=== PATIENT | male | born 1940 | race Hispanic/Latino ===

== ENCOUNTER 2018-10-31 19:30 | Outpatient (CLI) | payer OTHER | END 2018-10-31 19:31 | disposition home or self-care (01) | LOC: SLEEPLAB 19:30 | PROVIDERS: ATTEND Internal Medicine Critical Care Medicine | DX: G47.33 Obstructive sleep apnea (adult) (pediatric) (principal); R53.83 Other fatigue; E66.9 Obesity, unspecified; R09.02 Hypoxemia; Z68.29 Body mass index [BMI] 29.0-29.9, adult | CPT/HCPCS: 95811 ==

== ENCOUNTER 2018-11-06 12:52 | Outpatient (CLI) | payer OTHER ==
--- NOTE | 2018-11-06 14:51 | RAD ---
CHEST 2 VIEWS: HISTORY: Dyspnea. COMPARISON: 05/07/2018. FINDINGS: Cardiac silhouette and pulmonary vasculature are unremarkable. Mediastinum is midline with aortic ca lcification. Lungs are hyperinflated with linear scarring at each lung base. No lobar consolidation , pneumothorax, or pleural fluid. Old left lateral rib fractures. IMPRESSION: 1. Chronic obstructive pulmonary disease. Chronic-type findings appear stable. 2. Atherosclerosis. POS: [facility]
== END 2018-11-06 12:53 | disposition home or self-care (01) ==
LOC: RAD 12:52
PROVIDERS: ATTEND Internal Medicine Critical Care Medicine
DX: R06.00 Dyspnea, unspecified (principal); J44.9 Chronic obstructive pulmonary disease, unspecified; I70.0 Atherosclerosis of aorta; J98.4 Other disorders of lung; Z87.81 Personal history of (healed) traumatic fracture
CPT/HCPCS: 71046

== ENCOUNTER 2021-07-03 15:02 | Observation (INO) | payer OTHER ==
[~2021-07-03 15:02] MED LIST: Iopamidol-370 76% 500 ML 1 ML ONE
[2021-07-03 15:35] LABS: #Basophils 0.1 thou/uL (0.0-0.2); #Lymphocytes 0.7 thou/uL (1.20-3.40); #Monocytes 0.4 thou/uL (0.11-0.59); #Neutrophils 4.6 thou/uL (1.40-6.50); %Basophils 1.3 % (0.0-1.0); %Eosinophils 0.8 % (0.0-10.0); %Lymphocytes 12.1 % (21.0-51.0); %Monocytes 6.1 % (0.0-10.0); %Neutrophils 79.8 % (42.0-75.0); Hemoglobin 10.9 g/dL (14.0-18.0); Mean Corpuscular HGB CONC 32.3 g/dL (32.0-36.0); Mean Corpuscular Hemoglobin 28.6 pg (27.0-31.0); Mean Corpuscular Volume 88.7 fL (78.0-98.0); Mean Platelet Volume 6.9 fL (7.4-10.4); Platelet Count 280 thou/uL (130-400); RBC Distribution Width 14.4 % (11.5-14.5); Red Blood Cell (RBC) Count 3.82 mill/uL (4.70-6.10); White Blood Cell (WBC) Count 5.7 thou/uL (4.8-10.8)
[2021-07-03 15:56] LABS: ALT (SGPT) 19 U/L (8-55); AST (SGOT) 29 U/L (5-34); Albumin 3.1 g/dL (3.4-4.8); Alkaline Phosphatase 61 U/L (40-110); Anion Gap 11 mmol/L (10-20); BUN (Urea Nitrogen) 15 mg/dL (8.4-25.7); Bilirubin, Total 0.4 mg/dL (0.2-1.2); Calc. Creatinine Clearance 0 mL/min (70-130); Calcium 8.3 mg/dL (7.8-10.44); Carbon Dioxide 33 mmol/L (23-31); Chloride 91 mmol/L (98-107); Globulin 2.8 g/dL (2.4-3.5); Glucose 191 mg/dL (83-110); Potassium 3.5 mmol/L (3.5-5.1); Protein, Total 5.9 g/dL (5.8-8.1); Sodium 131 mmol/L (136-145)
[2021-07-03 16:16] LABS: CKMB 1.3 ng/mL (0-6.6)
[2021-07-03] MEDS ORDERED: Dexamethasone 10 MG/ML VIAL ONE ×2 (16:18→21:27)
[2021-07-03] MEDS ORDERED: Aspirin Chewable 81 MG TAB ONE (16:20)
[2021-07-03 20:32] LABS: Troponin I 0.038 ng/mL (< 0.028)
[2021-07-03] MEDS ORDERED: Guaifenesin DM 100-10/5 ML UDCUP PO PRN (20:39)
[2021-07-03] MEDS ORDERED: HYDROcodone/Acetaminophen 5/325 mg Tablet PO PRN (20:39)
[2021-07-03] MEDS ORDERED: Nitroglycerin 0.4 MG TAB (25 Tab Bottle) SL PRN (20:39)
[2021-07-03] MEDS ORDERED: Acetaminophen 325 MG TAB PO PRN (20:39)
[2021-07-03] MEDS ORDERED: cefTRIAXone\\ROCEPHIN 1 GM VIAL ONE (21:27)
[2021-07-03 21:52] LABS: Troponin I 0.036 ng/mL (< 0.028)
[2021-07-03] MEDS: cefTRIAXone\\ROCEPHIN 1 GM in Sodium Chloride 0.9% 100 ML IVPB SCH (21:55)
[2021-07-03] MEDS: Dexamethasone 10 MG/ML VIAL SLOW IVP SCH (21:56)
[2021-07-03] MEDS ORDERED: Azithromycin 500 MG VIAL ONE (23:15)
[2021-07-03] MEDS: Azithromycin 500 MG in Sodium Chloride 0.9% 250 ML 250 ML IVPB SCH (23:31)
[2021-07-04 08:57] LABS: #Lymphocytes 0.4 thou/uL (1.20-3.40); #Monocytes 0.1 thou/uL (0.11-0.59); %Eosinophils 0.1 % (0.0-10.0); %Lymphocytes 16.9 % (21.0-51.0); %Monocytes 3.7 % (0.0-10.0); %Neutrophils 79.3 % (42.0-75.0); Hemoglobin 12.5 g/dL (14.0-18.0); Mean Corpuscular HGB CONC 31.5 g/dL (32.0-36.0); Mean Corpuscular Hemoglobin 27.8 pg (27.0-31.0); Mean Corpuscular Volume 88.2 fL (78.0-98.0); Mean Platelet Volume 6.9 fL (7.4-10.4); Platelet Count 339 thou/uL (130-400); RBC Distribution Width 14.4 % (11.5-14.5); Red Blood Cell (RBC) Count 4.51 mill/uL (4.70-6.10); White Blood Cell (WBC) Count 2.5 thou/uL (4.8-10.8)
[2021-07-04 09:23] LABS: Anion Gap 16 mmol/L (10-20); BUN (Urea Nitrogen) 16 mg/dL (8.4-25.7); Calc. Creatinine Clearance 0 mL/min (70-130); Calcium 8.8 mg/dL (7.8-10.44); Carbon Dioxide 28 mmol/L (23-31); Cardiac Risk 4.1 (Less than 4.5); Chloride 93 mmol/L (98-107); Cholesterol 174 mg/dl (< 200 Desired); Glucose 273 mg/dL (83-110); HDL Cholesterol 42 mg/dL (>60 Neg Risk); LDL Cholesterol, Calculated 115 mg/dL; Sodium 133 mmol/L (136-145); Triglycerides 87 mg/dL (Less than 150)
[2021-07-04] MEDS ORDERED: Aspirin Chewable 81 MG TAB ONE (09:53)
[2021-07-04] MEDS ORDERED: Enoxaparin Sodium 40 MG/0.4 ML SYRINGE ONE (09:53)
[2021-07-04] MEDS: Aspirin Chewable 81 MG TAB PO SCH (09:56)
[2021-07-04] MEDS: Dexamethasone 10 MG/ML VIAL SLOW IVP SCH ×2 (09:57→20:13)
[2021-07-04] MEDS: Enoxaparin Sodium 40 MG/0.4 ML SYRINGE SC SCH (09:57)
[2021-07-04] MEDS: Cholecalciferol (Vitamin D3) 400 UNITS TAB PO SCH (09:57)
[2021-07-04] MEDS ORDERED: Sodium Chloride 0.9% 1,000 ML IV SCH (10:00)
[2021-07-04] MEDS ORDERED: Zinc Sulfate 220 MG CAP ONE (10:12)
[2021-07-04] MEDS ORDERED: Ascorbic Acid 500 mg Chewable Tablet ONE (10:12)
[2021-07-04] MEDS: Zinc Sulfate 220 MG CAP PO SCH (10:14)
[2021-07-04] MEDS: Ascorbic Acid 500 mg Chewable Tablet PO SCH (10:14)
[2021-07-04] MEDS ORDERED: Dextrose 5% in Water 1,000 ML IV PRN (11:18)
[2021-07-04] MEDS ORDERED: HumaLOG 300 UNITS/3 ML VIAL SC PRN (11:18)
[2021-07-04] MEDS ORDERED: Dextrose 50% Abboject 50 ML SYRINGE SLOW IVP PRN (11:18)
[2021-07-04] MEDS: Carvedilol 6.25 MG TAB PO SCH (16:47)
[2021-07-04] MEDS ORDERED: Mometasone 100 MCG/Formoterol 5 MCG 120 PUFF INHALER INH SCH (18:30)
[2021-07-04] MEDS ORDERED: Dexamethasone 10 MG/ML VIAL ONE (19:57)
[2021-07-04] MEDS ORDERED: cefTRIAXone\\ROCEPHIN 1 GM VIAL ONE (19:57)
[2021-07-04] MEDS: cefTRIAXone\\ROCEPHIN 1 GM in Sodium Chloride 0.9% 100 ML IVPB SCH (20:12)
[2021-07-04 20:15] VITALS: TEMP 98.6
[2021-07-04] MEDS ORDERED: Azithromycin 500 MG VIAL ONE (21:44)
[2021-07-04] MEDS: Azithromycin 500 MG in Sodium Chloride 0.9% 250 ML 250 ML IVPB SCH (21:56)
[2021-07-04] MEDS ORDERED: Ondansetron PF 4 MG/2 ML Vial IVP PRN (23:43)
[2021-07-05 05:26] LABS: #Lymphocytes 0.3 thou/uL (1.20-3.40); #Monocytes 0.4 thou/uL (0.11-0.59); #Neutrophils 6.4 thou/uL (1.40-6.50); %Lymphocytes 4.7 % (21.0-51.0); %Monocytes 4.9 % (0.0-10.0); %Neutrophils 90.3 % (42.0-75.0); Hemoglobin 11.2 g/dL (14.0-18.0); Mean Corpuscular HGB CONC 31.2 g/dL (32.0-36.0); Mean Corpuscular Hemoglobin 27.4 pg (27.0-31.0); Mean Corpuscular Volume 87.6 fL (78.0-98.0); Mean Platelet Volume 7.2 fL (7.4-10.4); Platelet Count 397 thou/uL (130-400); RBC Distribution Width 14.5 % (11.5-14.5); Red Blood Cell (RBC) Count 4.08 mill/uL (4.70-6.10); White Blood Cell (WBC) Count 7.1 thou/uL (4.8-10.8)
[2021-07-05 06:05] LABS: ALT (SGPT) 19 U/L (8-55); AST (SGOT) 24 U/L (5-34); Albumin 3.1 g/dL (3.4-4.8); Alkaline Phosphatase 68 U/L (40-110); Anion Gap 14 mmol/L (10-20); BUN (Urea Nitrogen) 17 mg/dL (8.4-25.7); Bilirubin, Total 0.3 mg/dL (0.2-1.2); Calc. Creatinine Clearance 0 mL/min (70-130); Calcium 8.7 mg/dL (7.8-10.44); Carbon Dioxide 27 mmol/L (23-31); Chloride 96 mmol/L (98-107); Globulin 2.9 g/dL (2.4-3.5); Glucose 314 mg/dL (83-110); Potassium 3.4 mmol/L (3.5-5.1); Sodium 134 mmol/L (136-145)
[2021-07-05] MEDS ORDERED: Acetaminophen 325 MG TAB ONE (07:03)
[2021-07-05] MEDS ORDERED: Dexamethasone 4 MG TAB PO SCH (08:00)
[2021-07-05] MEDS ORDERED: Potassium Chloride 20 MEQ TAB PO SCH ×2 (08:15→10:15)
[2021-07-05] MEDS ORDERED: Enoxaparin Sodium 40 MG/0.4 ML SYRINGE ONE (08:29)
[2021-07-05] MEDS ORDERED: Ascorbic Acid 500 mg Chewable Tablet ONE (08:29)
[2021-07-05] MEDS ORDERED: Aspirin Chewable 81 MG TAB ONE (08:29)
[2021-07-05] MEDS ORDERED: Zinc Sulfate 220 MG CAP ONE (08:29)
[2021-07-05] MEDS: Cholecalciferol (Vitamin D3) 400 UNITS TAB PO SCH (08:40)
[2021-07-05] MEDS: Carvedilol 6.25 MG TAB PO SCH (08:40)
[2021-07-05] MEDS: Enoxaparin Sodium 40 MG/0.4 ML SYRINGE SC SCH (08:40)
[2021-07-05] MEDS: Aspirin Chewable 81 MG TAB PO SCH (08:40)
[2021-07-05] MEDS: Ascorbic Acid 500 mg Chewable Tablet PO SCH (08:40)
[2021-07-05 08:41] VITALS: BP 166/83
[2021-07-05] MEDS: Zinc Sulfate 220 MG CAP PO SCH (08:41)
[2021-07-05] MEDS ORDERED: Atorvastatin Calcium 40 MG TAB PO SCH (09:00)
[2021-07-05] MEDS ORDERED: Potassium Chloride 20 MEQ TAB ONE (09:44)
== END 2021-07-05 13:16 | disposition home or self-care (01) ==
LOC: ERS 15:02 → ERHOLD 17:21
PROVIDERS: ADMIT Internal Medicine; ATTEND Internal Medicine
DX: U07.1 COVID-19 (principal); J12.82 Pneumonia due to coronavirus disease 2019; R77.8 Other specified abnormalities of plasma proteins; E87.1 Hypo-osmolality and hyponatremia; E87.8 Other disorders of electrolyte and fluid balance, not elsewhere classified; E11.9 Type 2 diabetes mellitus without complications; I10 Essential (primary) hypertension; E78.5 Hyperlipidemia, unspecified; F10.11 Alcohol abuse, in remission; I45.10 Unspecified right bundle-branch block; Z87.891 Personal history of nicotine dependence; Z79.84 Long term (current) use of oral hypoglycemic drugs; Z79.899 Other long term (current) drug therapy
CPT/HCPCS: 36415; 71045; 71275; 80048; 80053; 80061; 82553; 84484; 85025; 86140; 93005; 96372; 96375; 96376; G0378; J0456; J0696; J1100; J1650; J3490; J7050; J8540; Q9967

== ENCOUNTER 2024-03-13 12:42 | Inpatient (IN) | payer MEDICARE, OTHER ==
[~2024-03-13 12:42] MED LIST changes: -Iopamidol-370 76% 500 ML 1 ML ONE; +Iopamidol-370 76% 500 ML MDV (1 ML CHARGE) ONE
[2024-03-13 13:10] LABS: #Basophils Less than 0.03 10x3/uL (0.0-0.2); %Basophils 0.2 % (0.0-1.0); %Eosinophils 0.7 % (0.0-10.0); %Lymphocytes 10.7 % (21.0-51.0); %Monocytes 8.1 % (0.0-10.0); Hematocrit 38.5 % (42.0-52.0); Hemoglobin 13.4 g/dL (14.0-18.0); Mean Corpuscular HGB CONC 34.8 g/dL (32.0-36.0); Mean Corpuscular Hemoglobin 30.4 pg (27.0-31.0); Mean Corpuscular Volume 87.3 fL (78.0-98.0); Mean Platelet Volume 8.7 fL (7.4-10.4); Platelet Count 255 10x3/uL (130-400); RBC Distribution Width 13.5 % (11.5-14.5); Red Blood Cell (RBC) Count 4.41 mill/uL (4.70-6.10)
[2024-03-13 13:24] LABS: ALT (SGPT) 7 U/L (8-55); AST (SGOT) 21 U/L (5-34); Albumin 3.6 g/dL (3.4-4.8); Alkaline Phosphatase 89 U/L (40-110); Anion Gap 15 mmol/L (10-20); BUN (Urea Nitrogen) 7 mg/dL (8.4-25.7); Bilirubin, Total 0.6 mg/dL (0.2-1.2); CK (CPK) 244 U/L (30-200); Calc. Creatinine Clearance 0 mL/min (70-130); Carbon Dioxide 27 mmol/L (23-31); Chloride 91 mmol/L (98-107); Estimated GFR 88; Globulin 3.4 g/dL (2.4-3.5); Glucose 127 mg/dL (83-110); Potassium 3.5 mmol/L (3.5-5.1); Sodium 129 mmol/L (136-145)
[2024-03-13 13:29] LABS: Troponin I 0.037 ng/mL (< 0.028)
[2024-03-13] MEDS ORDERED: Nitroglycerin 2% Ointment 1 INCH/1 GM Packet ONE (13:48)
[2024-03-13] MEDS ORDERED: Aspirin Chewable 81 MG TAB ONE (13:49)
[2024-03-13] MEDS ORDERED: dilTIAZem 25 MG/5 ML VIAL ONE (13:49)
[2024-03-13 14:05] LABS: Bacteria/HPF None Seen HPF (None Seen); Bilirubin Negative (Negative); Blood, Urine Negative (Negative); CAUTI Indications for Culture Alt mental st,lethar; Clarity Clear (Clear); Glucose, Urine (Dipstick) Normal (Negative); Ketone, Urine Negative (Negative); Leukocyte Negative Leu/uL (Negative); Nitrite Negative (Negative); Protein, Urine (Dipstick) 30 mg/dL (Neg-Trace); RBC/HPF None Seen HPF (0-3); Specific Gravity, Urine 1.024 (1.002-1.036); Squamous Epithelial None Seen HPF (0-3); Urobilinogen Normal mg/dL (Less than 2); WBC/HPF None Seen HPF (0-3); pH, Urine 7.5 (5.0-9.0)
[2024-03-13 14:06] LABS: Urine Culture Reflex No No
[2024-03-13 14:43] VITALS: BMI 28.8
[2024-03-13 17:08] LABS: Troponin I 0.043 ng/mL (< 0.028)
[2024-03-13] MEDS: Sodium Chloride 0.9% 1,000 ML IV SCH (18:39)
[2024-03-13] MEDS: Atorvastatin Calcium 40 MG TAB PO SCH (22:15)
[2024-03-13] MEDS: Heparin 5,000 UNITS/ML VIAL SC SCH (22:16)
[2024-03-14 06:04] LABS: Cardiac Risk 3.2 (Less than 4.5)
[2024-03-14] MEDS: Aspirin 325 mg Enteric Coated Tablet PO SCH (08:22)
[2024-03-14 10:58] LABS: #Basophils 0.03 10x3/uL (0.0-0.2); %Basophils 0.4 % (0.0-1.0); %Eosinophils 0.5 % (0.0-10.0); %Lymphocytes 15.6 % (21.0-51.0); %Monocytes 8.6 % (0.0-10.0); %Neutrophils 74.7 % (42.0-75.0); Hematocrit 41.5 % (42.0-52.0); Hemoglobin 14.3 g/dL (14.0-18.0); Mean Corpuscular HGB CONC 34.5 g/dL (32.0-36.0); Mean Corpuscular Hemoglobin 30.4 pg (27.0-31.0); Mean Corpuscular Volume 88.1 fL (78.0-98.0); Mean Platelet Volume 8.8 fL (7.4-10.4); Platelet Count 265 10x3/uL (130-400); RBC Distribution Width 13.6 % (11.5-14.5); Red Blood Cell (RBC) Count 4.71 mill/uL (4.70-6.10)
[2024-03-14 11:27] LABS: ALT (SGPT) 8 U/L (8-55); AST (SGOT) 29 U/L (5-34); Albumin 3.7 g/dL (3.4-4.8); Alkaline Phosphatase 95 U/L (40-110); Anion Gap 15 mmol/L (10-20); BUN (Urea Nitrogen) 6 mg/dL (8.4-25.7); Bilirubin, Total 0.8 mg/dL (0.2-1.2); Calc. Creatinine Clearance 86 mL/min (70-130); Calcium 9.5 mg/dL (7.8-10.44); Carbon Dioxide 23 mmol/L (23-31); Chloride 95 mmol/L (98-107); Estimated GFR 88; Globulin 3.7 g/dL (2.4-3.5); Glucose 142 mg/dL (83-110); Potassium 3.2 mmol/L (3.5-5.1); Protein, Total 7.4 g/dL (5.8-8.1); Sodium 130 mmol/L (136-145)
[2024-03-14 11:34] LABS: Troponin I 0.052 ng/mL (< 0.028)
[2024-03-14] MEDS ORDERED: Glucagon 1 MG/ML KIT IM PRN (13:18)
[2024-03-14] MEDS ORDERED: Dextrose 50% Abboject 50 ML SYRINGE SLOW IVP PRN (13:18)
[2024-03-14] MEDS ORDERED: Dextrose 5% in Water 1,000 ML IV PRN (13:18)
[2024-03-14 16:29] LABS: Troponin I 0.045 ng/mL (< 0.028)
[2024-03-14] MEDS: hydrALAZINE 20 MG/ML VIAL SLOW IVP PRN (16:36)
[2024-03-15 04:28] LABS: #Basophils Less than 0.03 10x3/uL (0.0-0.2); %Basophils 0.2 % (0.0-1.0); %Lymphocytes 14.4 % (21.0-51.0); %Monocytes 9.7 % (0.0-10.0); %Neutrophils 74.4 % (42.0-75.0); Hemoglobin 13.5 g/dL (14.0-18.0); Mean Corpuscular HGB CONC 34.6 g/dL (32.0-36.0); Mean Corpuscular Hemoglobin 30.5 pg (27.0-31.0); Platelet Count 252 10x3/uL (130-400); RBC Distribution Width 13.6 % (11.5-14.5); Red Blood Cell (RBC) Count 4.43 mill/uL (4.70-6.10)
[2024-03-15 05:17] LABS: ALT (SGPT) 12 U/L (8-55); AST (SGOT) 30 U/L (5-34); Albumin 3.2 g/dL (3.4-4.8); Alkaline Phosphatase 81 U/L (40-110); Anion Gap 14 mmol/L (10-20); BUN (Urea Nitrogen) 7 mg/dL (8.4-25.7); Bilirubin, Total 0.7 mg/dL (0.2-1.2); Calc. Creatinine Clearance 84 mL/min (70-130); Carbon Dioxide 24 mmol/L (23-31); Chloride 96 mmol/L (98-107); Estimated GFR 87; Globulin 3.4 g/dL (2.4-3.5); Glucose 118 mg/dL (83-110); Potassium 3.3 mmol/L (3.5-5.1); Protein, Total 6.6 g/dL (5.8-8.1); Sodium 131 mmol/L (136-145)
[2024-03-15] MEDS: Lorazepam 2 MG/ML VIAL SLOW IVP SCH (09:39)
[2024-03-15] MEDS: Losartan 25 MG TAB PO SCH ×2 (10:26→22:02)
[2024-03-15] MEDS: Lorazepam 2 MG/ML VIAL SLOW IVP PRN (14:39)
[2024-03-16 05:05] LABS: #Basophils Less than 0.03 10x3/uL (0.0-0.2); %Basophils 0.2 % (0.0-1.0); %Eosinophils 0.9 % (0.0-10.0); %Lymphocytes 10.3 % (21.0-51.0); %Monocytes 10.8 % (0.0-10.0); %Neutrophils 77.5 % (42.0-75.0); Hematocrit 42.1 % (42.0-52.0); Hemoglobin 14.4 g/dL (14.0-18.0); Mean Corpuscular HGB CONC 34.2 g/dL (32.0-36.0); Mean Corpuscular Hemoglobin 29.6 pg (27.0-31.0); Mean Corpuscular Volume 86.6 fL (78.0-98.0); Mean Platelet Volume 9.5 fL (7.4-10.4); Platelet Count 239 10x3/uL (130-400); Red Blood Cell (RBC) Count 4.86 mill/uL (4.70-6.10)
[2024-03-16 05:28] LABS: ALT (SGPT) 14 U/L (8-55); AST (SGOT) 30 U/L (5-34); Albumin 3.4 g/dL (3.4-4.8); Alkaline Phosphatase 83 U/L (40-110); Anion Gap 16 mmol/L (10-20); BUN (Urea Nitrogen) 10 mg/dL (8.4-25.7); Bilirubin, Total 0.9 mg/dL (0.2-1.2); Calc. Creatinine Clearance 89 mL/min (70-130); Calcium 9.1 mg/dL (7.8-10.44); Carbon Dioxide 21 mmol/L (23-31); Chloride 98 mmol/L (98-107); Estimated GFR 89; Globulin 3.3 g/dL (2.4-3.5); Glucose 111 mg/dL (83-110); Potassium 3.2 mmol/L (3.5-5.1); Protein, Total 6.7 g/dL (5.8-8.1); Sodium 132 mmol/L (136-145)
[2024-03-16 05:32] LABS: Troponin I 0.054 ng/mL (< 0.028)
[2024-03-16] MEDS: Aspirin Chewable 81 MG TAB PO SCH (08:02)
[2024-03-16] MEDS: Clopidogrel Bisulfate 75 MG TAB PO SCH (08:03)
[2024-03-16] MEDS: Potassium Chloride 20 MEQ TAB PO SCH ×2 (10:11→15:55)
[2024-03-16] MEDS: Amlodipine 5 MG TAB PO SCH ×2 (10:11→20:30)
[2024-03-16] MEDS ORDERED: E-Z-HD 98% W/W 340GM BOT (x-ray ONLY) ONE (13:28)
[2024-03-16] MEDS: hydrALAZINE 25 MG TAB PO SCH ×2 (15:55→20:31)
[2024-03-17 06:04] LABS: #Basophils 0.03 10x3/uL (0.0-0.2); %Basophils 0.3 % (0.0-1.0); %Eosinophils 1.8 % (0.0-10.0); %Lymphocytes 11.9 % (21.0-51.0); %Monocytes 9.5 % (0.0-10.0); %Neutrophils 76.2 % (42.0-75.0); Hematocrit 37.9 % (42.0-52.0); Hemoglobin 12.8 g/dL (14.0-18.0); Mean Corpuscular HGB CONC 33.8 g/dL (32.0-36.0); Mean Corpuscular Hemoglobin 30.5 pg (27.0-31.0); Mean Corpuscular Volume 90.2 fL (78.0-98.0); Mean Platelet Volume 9.2 fL (7.4-10.4); Platelet Count 275 10x3/uL (130-400); RBC Distribution Width 14.3 % (11.5-14.5)
[2024-03-17 06:31] LABS: ALT (SGPT) 12 U/L (8-55); AST (SGOT) 22 U/L (5-34); Alkaline Phosphatase 71 U/L (40-110); Anion Gap 13 mmol/L (10-20); BUN (Urea Nitrogen) 10 mg/dL (8.4-25.7); Bilirubin, Total 0.6 mg/dL (0.2-1.2); Calc. Creatinine Clearance 93 mL/min (70-130); Calcium 8.9 mg/dL (7.8-10.44); Carbon Dioxide 22 mmol/L (23-31); Chloride 98 mmol/L (98-107); Estimated GFR 90; Globulin 3.5 g/dL (2.4-3.5); Glucose 118 mg/dL (83-110); Potassium 3.4 mmol/L (3.5-5.1); Protein, Total 6.5 g/dL (5.8-8.1); Sodium 130 mmol/L (136-145)
[2024-03-17] MEDS ORDERED: Electrolyte Replacement Protocol 1 EACH FS SCH (10:45)
[2024-03-17] MEDS ORDERED: Ketamine In 0.9 % NaCl 50 MG/5 ML SYRINGE ONE (11:06)
[2024-03-17] MEDS: Potassium Chloride 20 MEQ TAB PO SCH (13:02)
[2024-03-17] MEDS: Insulin Regular, Human 100 UNIT/ML 10 ML VIAL SC PRN (16:48)
[2024-03-18 05:39] LABS: #Basophils Less than 0.03 10x3/uL (0.0-0.2); %Basophils 0.2 % (0.0-1.0); %Eosinophils 1.7 % (0.0-10.0); %Lymphocytes 14.1 % (21.0-51.0); %Monocytes 10.8 % (0.0-10.0); %Neutrophils 72.8 % (42.0-75.0); Hematocrit 38.6 % (42.0-52.0); Hemoglobin 13.2 g/dL (14.0-18.0); Mean Corpuscular HGB CONC 34.2 g/dL (32.0-36.0); Mean Corpuscular Hemoglobin 30.3 pg (27.0-31.0); Mean Corpuscular Volume 88.5 fL (78.0-98.0); Mean Platelet Volume 9.1 fL (7.4-10.4); Platelet Count 280 10x3/uL (130-400); RBC Distribution Width 13.9 % (11.5-14.5); Red Blood Cell (RBC) Count 4.36 mill/uL (4.70-6.10)
[2024-03-18 05:46] LABS: ALT (SGPT) 9 U/L (8-55); AST (SGOT) 24 U/L (5-34); Albumin 3.1 g/dL (3.4-4.8); Alkaline Phosphatase 72 U/L (40-110); Anion Gap 13 mmol/L (10-20); BUN (Urea Nitrogen) 9 mg/dL (8.4-25.7); Bilirubin, Total 0.8 mg/dL (0.2-1.2); Calc. Creatinine Clearance 98 mL/min (70-130); Calcium 9.5 mg/dL (7.8-10.44); Carbon Dioxide 22 mmol/L (23-31); Chloride 95 mmol/L (98-107); Estimated GFR 92; Globulin 3.6 g/dL (2.4-3.5); Glucose 137 mg/dL (83-110); Potassium 3.9 mmol/L (3.5-5.1); Protein, Total 6.7 g/dL (5.8-8.1); Sodium 126 mmol/L (136-145)
[2024-03-18 13:20] LABS: Sodium 127 mmol/L (136-145)
[2024-03-18] MEDS ORDERED: Insulin Regular, Human 100 UNIT/ML 10 ML VIAL SC PRN (23:02)
[2024-03-19] MEDS: Aspirin Chewable 81 MG TAB PO SCH (09:13)
[2024-03-19 09:55] LABS: Anion Gap 15 mmol/L (10-20); BUN (Urea Nitrogen) 12 mg/dL (8.4-25.7); Calc. Creatinine Clearance 88 mL/min (70-130); Carbon Dioxide 22 mmol/L (23-31); Chloride 97 mmol/L (98-107); Estimated GFR 89; Glucose 167 mg/dL (83-110); Potassium 4.3 mmol/L (3.5-5.1); Sodium 130 mmol/L (136-145)
[2024-03-19 15:40] VITALS: BP 138/84; TEMP 97.4
== END 2024-03-19 19:00 | DRG 65 ==
LOC: ERS 12:42 → 2SE 14:00 → ERHOLD 14:02 → 2SE 16:22
PROVIDERS: ADMIT Internal Medicine; ATTEND Internal Medicine
DX: I63.431 Cerebral infarction due to embolism of right posterior cerebral artery (principal); E22.2 Syndrome of inappropriate secretion of antidiuretic hormone; G81.94 Hemiplegia, unspecified affecting left nondominant side; I42.0 Dilated cardiomyopathy; E78.5 Hyperlipidemia, unspecified; Z79.899 Other long term (current) drug therapy; Z79.84 Long term (current) use of oral hypoglycemic drugs; Z79.82 Long term (current) use of aspirin; Z79.01 Long term (current) use of anticoagulants; N18.1 Chronic kidney disease, stage 1; D63.1 Anemia in chronic kidney disease; I12.9 Hypertensive chronic kidney disease with stage 1 through stage 4 chronic kidney disease, or unspecified chronic kidney disease; E11.22 Type 2 diabetes mellitus with diabetic chronic kidney disease
CPT/HCPCS: 0042T; 36415; 36416; 70450; 70496; 70498; 70551; 71045; 74230; 80048; 80053; 80061; 81001; 82550; 84443; 84484; 85025; 93005; 93306; 93312; 96374; J0360; J1644; J1815; J2060; J3490; J7050; Q9967

== ENCOUNTER 2024-03-23 14:31 | Inpatient (IN) | payer OTHER, MEDICARE ==
[2024-03-23 15:35] LABS: #Basophils Less than 0.03 10x3/uL (0.0-0.2); %Basophils 0.1 % (0.0-1.0); %Eosinophils 0.5 % (0.0-10.0); %Monocytes 8.8 % (0.0-10.0); %Neutrophils 82.3 % (42.0-75.0); Hematocrit 34.4 % (42.0-52.0); Hemoglobin 12.4 g/dL (14.0-18.0); Mean Corpuscular Hemoglobin 30.1 pg (27.0-31.0); Mean Corpuscular Volume 83.5 fL (78.0-98.0); Platelet Count 352 10x3/uL (130-400); Red Blood Cell (RBC) Count 4.12 mill/uL (4.70-6.10)
[2024-03-23 15:57] LABS: Troponin I 0.029 ng/mL (< 0.028)
[2024-03-23 16:09] LABS: ALT (SGPT) 71 U/L (8-55); AST (SGOT) 117 U/L (5-34); Albumin 3.3 g/dL (3.4-4.8); Alkaline Phosphatase 78 U/L (40-110); Anion Gap 13 mmol/L (10-20); BUN (Urea Nitrogen) 19 mg/dL (8.4-25.7); Bilirubin, Total 0.5 mg/dL (0.2-1.2); Calc. Creatinine Clearance 0 mL/min (70-130); Calcium 8.9 mg/dL (7.8-10.44); Carbon Dioxide 25 mmol/L (23-31); Chloride 83 mmol/L (98-107); Estimated GFR 77; Globulin 3.5 g/dL (2.4-3.5); Glucose 162 mg/dL (83-110); Lipase 30 U/L (8-78); Potassium 3.9 mmol/L (3.5-5.1); Protein, Total 6.8 g/dL (5.8-8.1); Sodium 117 mmol/L (136-145)
[2024-03-23] MEDS ORDERED: Magnesium 2 GM/50 ML BAG (IN WATER) ONE (16:31)
[2024-03-23] MEDS ORDERED: Loperamide HCl 2 MG CAP PO PRN (17:06)
[2024-03-23 17:57] LABS: Bacteria/HPF None Seen HPF (None Seen); Bilirubin Negative (Negative); Blood, Urine Negative (Negative); CAUTI Indications for Culture Alt mental st,lethar; Clarity Clear (Clear); Glucose, Urine (Dipstick) Normal (Negative); Ketone, Urine Negative (Negative); Leukocyte Negative Leu/uL (Negative); Nitrite Negative (Negative); Protein, Urine (Dipstick) 70 mg/dL (Neg-Trace); RBC/HPF None Seen HPF (0-3); Specific Gravity, Urine 1.017 (1.002-1.036); Squamous Epithelial None Seen HPF (0-3); Urobilinogen 3 mg/dL (Less than 2); WBC/HPF 0-3 HPF (0-3); pH, Urine 6.5 (5.0-9.0)
[2024-03-23 18:04] LABS: Urine Culture Reflex No No
[2024-03-23 20:50] VITALS: BMI 27.6
[2024-03-23] MEDS: Famotidine/PF 20 mg/2ml Vial SLOW IVP SCH (20:52)
[2024-03-23] MEDS: hydrALAZINE 20 MG/ML VIAL SLOW IVP PRN (20:52)
[2024-03-23 21:01] LABS: ALT (SGPT) 75 U/L (8-55); AST (SGOT) 117 U/L (5-34); Albumin 3.2 g/dL (3.4-4.8); Alkaline Phosphatase 71 U/L (40-110); Anion Gap 14 mmol/L (10-20); Anion Gap 16 mmol/L (10-20); BUN (Urea Nitrogen) 17 mg/dL (8.4-25.7); Bilirubin, Total 0.6 mg/dL (0.2-1.2); Calc. Creatinine Clearance 78 mL/min (70-130); Calc. Creatinine Clearance 79 mL/min (70-130); Calcium 8.8 mg/dL (7.8-10.44); Calcium 8.9 mg/dL (7.8-10.44); Carbon Dioxide 22 mmol/L (23-31); Chloride 84 mmol/L (98-107); Chloride 85 mmol/L (98-107); Estimated GFR 87; Globulin 3.4 g/dL (2.4-3.5); Glucose 116 mg/dL (83-110); Potassium 4.1 mmol/L (3.5-5.1); Protein, Total 6.6 g/dL (5.8-8.1); Sodium 117 mmol/L (136-145)
[2024-03-23 23:46] LABS: Anion Gap 17 mmol/L (10-20); BUN (Urea Nitrogen) 17 mg/dL (8.4-25.7); Calc. Creatinine Clearance 80 mL/min (70-130); Calcium 8.8 mg/dL (7.8-10.44); Carbon Dioxide 20 mmol/L (23-31); Chloride 86 mmol/L (98-107); Estimated GFR 87; Glucose 121 mg/dL (83-110); Magnesium 1.4 mg/dL (1.6-2.6); Potassium 4.1 mmol/L (3.5-5.1); Sodium 119 mmol/L (136-145)
[2024-03-24] MEDS ORDERED: Dextrose 50% Abboject 50 ML SYRINGE SLOW IVP PRN (00:19)
[2024-03-24] MEDS ORDERED: Dextrose 5% in Water 1,000 ML IV PRN (00:19)
[2024-03-24] MEDS ORDERED: HumaLOG 300 UNITS/3 ML VIAL SC PRN (00:19)
[2024-03-24] MEDS ORDERED: Glucagon 1 MG/ML KIT IM PRN (00:19)
[2024-03-24] MEDS: Ondansetron PF 4 MG/2 ML Vial IVP PRN (00:32)
[2024-03-24] MEDS: Magnesium 2 GM/50 ML(in water) 2 GM in Premix 1 BAG IVPB SCH ×2 (00:39→07:06)
[2024-03-24 06:11] LABS: #Basophils Less than 0.03 10x3/uL (0.0-0.2); %Basophils 0.1 % (0.0-1.0); %Eosinophils 0.4 % (0.0-10.0); %Lymphocytes 10.9 % (21.0-51.0); %Monocytes 9.7 % (0.0-10.0); %Neutrophils 78.8 % (42.0-75.0); Hematocrit 35.4 % (42.0-52.0); Hemoglobin 12.4 g/dL (14.0-18.0); Mean Corpuscular Hemoglobin 30.1 pg (27.0-31.0); Mean Corpuscular Volume 85.9 fL (78.0-98.0); Mean Platelet Volume 8.6 fL (7.4-10.4); Platelet Count 330 10x3/uL (130-400); RBC Distribution Width 13.1 % (11.5-14.5); Red Blood Cell (RBC) Count 4.12 mill/uL (4.70-6.10)
[2024-03-24 06:40] LABS: ALT (SGPT) 81 U/L (8-55); AST (SGOT) 121 U/L (5-34); Albumin 3.4 g/dL (3.4-4.8); Alkaline Phosphatase 68 U/L (40-110); Anion Gap 12 mmol/L (10-20); BUN (Urea Nitrogen) 15 mg/dL (8.4-25.7); Bilirubin, Total 0.6 mg/dL (0.2-1.2); Calc. Creatinine Clearance 79 mL/min (70-130); Carbon Dioxide 23 mmol/L (23-31); Chloride 87 mmol/L (98-107); Estimated GFR 87; Globulin 3.5 g/dL (2.4-3.5); Glucose 118 mg/dL (83-110); Potassium 4.1 mmol/L (3.5-5.1); Protein, Total 6.9 g/dL (5.8-8.1); Sodium 118 mmol/L (136-145)
[2024-03-24] MEDS: IN SODIUM CHLORIDE IVPB SCH (07:06)
[2024-03-24] MEDS: ADMIXTURE FEE IVPB SCH (07:06)
[2024-03-24] MEDS: Enoxaparin 40 MG (0.4 mL) SYRINGE SC SCH (08:18)
[2024-03-24] MEDS: Sodium Chloride 3% 500 ML IVPB SCH (09:52)
[2024-03-24] MEDS: Labetalol HCl 100 MG/20 ML VIAL SLOW IVP PRN (12:09)
[2024-03-24 13:52] LABS: Anion Gap 11 mmol/L (10-20); BUN (Urea Nitrogen) 15 mg/dL (8.4-25.7); Calc. Creatinine Clearance 83 mL/min (70-130); Calcium 8.8 mg/dL (7.8-10.44); Carbon Dioxide 25 mmol/L (23-31); Chloride 89 mmol/L (98-107); Estimated GFR 88; Glucose 134 mg/dL (83-110); Sodium 121 mmol/L (136-145)
[2024-03-24 14:32] LABS: Anion Gap 11 mmol/L (10-20); BUN (Urea Nitrogen) 16 mg/dL (8.4-25.7); Calc. Creatinine Clearance 83 mL/min (70-130); Carbon Dioxide 25 mmol/L (23-31); Chloride 89 mmol/L (98-107); Estimated GFR 88; Glucose 125 mg/dL (83-110); Sodium 121 mmol/L (136-145)
[2024-03-24 19:47] LABS: Anion Gap 14 mmol/L (10-20); BUN (Urea Nitrogen) 16 mg/dL (8.4-25.7); Calc. Creatinine Clearance 85 mL/min (70-130); Carbon Dioxide 24 mmol/L (23-31); Chloride 92 mmol/L (98-107); Estimated GFR 89; Glucose 123 mg/dL (83-110); Magnesium 1.7 mg/dL (1.6-2.6); Sodium 126 mmol/L (136-145)
[2024-03-24 23:44] LABS: Anion Gap 12 mmol/L (10-20); BUN (Urea Nitrogen) 15 mg/dL (8.4-25.7); Calc. Creatinine Clearance 86 mL/min (70-130); Calcium 8.8 mg/dL (7.8-10.44); Carbon Dioxide 25 mmol/L (23-31); Chloride 92 mmol/L (98-107); Estimated GFR 89; Glucose 136 mg/dL (83-110); Potassium 3.9 mmol/L (3.5-5.1); Sodium 125 mmol/L (136-145)
[2024-03-25 07:50] LABS: Anion Gap 11 mmol/L (10-20); BUN (Urea Nitrogen) 15 mg/dL (8.4-25.7); Calc. Creatinine Clearance 84 mL/min (70-130); Carbon Dioxide 24 mmol/L (23-31); Chloride 92 mmol/L (98-107); Estimated GFR 89; Glucose 131 mg/dL (83-110); Potassium 3.8 mmol/L (3.5-5.1); Sodium 123 mmol/L (136-145)
[2024-03-25 16:49] LABS: Anion Gap 12 mmol/L (10-20); BUN (Urea Nitrogen) 14 mg/dL (8.4-25.7); Calc. Creatinine Clearance 87 mL/min (70-130); Calcium 9.3 mg/dL (7.8-10.44); Carbon Dioxide 27 mmol/L (23-31); Chloride 91 mmol/L (98-107); Estimated GFR 90; Glucose 126 mg/dL (83-110); Potassium 3.6 mmol/L (3.5-5.1); Sodium 126 mmol/L (136-145)
[2024-03-25 19:33] LABS: Anion Gap 17 mmol/L (10-20); BUN (Urea Nitrogen) 14 mg/dL (8.4-25.7); Calc. Creatinine Clearance 85 mL/min (70-130); Calcium 9.6 mg/dL (7.8-10.44); Carbon Dioxide 25 mmol/L (23-31); Chloride 91 mmol/L (98-107); Estimated GFR 89; Glucose 133 mg/dL (83-110); Potassium 3.8 mmol/L (3.5-5.1); Sodium 129 mmol/L (136-145)
[2024-03-25] MEDS: Losartan 25 MG TAB PO SCH (21:26)
[2024-03-25] MEDS: hydrALAZINE 25 MG TAB PO SCH (21:26)
[2024-03-25] MEDS: Amlodipine 5 MG TAB PO SCH (21:27)
[2024-03-26] MEDS: Acetaminophen 650 MG/20.3 ML UDCUP PER TUBE PRN (01:33)
[2024-03-26 05:15] LABS: Anion Gap 9 mmol/L (10-20); BUN (Urea Nitrogen) 13 mg/dL (8.4-25.7); Calc. Creatinine Clearance 88 mL/min (70-130); Calcium 9.4 mg/dL (7.8-10.44); Carbon Dioxide 29 mmol/L (23-31); Chloride 92 mmol/L (98-107); Estimated GFR 90; Glucose 121 mg/dL (83-110); Potassium 3.6 mmol/L (3.5-5.1); Sodium 126 mmol/L (136-145)
[2024-03-26] MEDS: Mometasone 100 MCG/Formoterol 5 MCG 120 PUFF INHALER INH SCH (07:43)
[2024-03-26 07:54] LABS: HBCM Index 0.06 S/CO (0-0.79); HBsAg Index 0.31 S/CO (0-0.99); Hep A IgM AB NONREACTIVE (NonReactive); Hep A IgM S/CO 0.19 S/CO (0-0.79); Hep B Surf Ag NONREACTIVE S/CO (NonReactive); Hep C IgG Ab NONREACTIVE S/CO (NonReactive); Hep C Index 0.17 S/CO (0-0.79); Hepatitis B Core IgM Abs NONREACTIVE S/CO (NonReactive)
[2024-03-26 08:02] LABS: Anion Gap 17 mmol/L (10-20); BUN (Urea Nitrogen) 13 mg/dL (8.4-25.7); Calc. Creatinine Clearance 78 mL/min (70-130); Calcium 9.5 mg/dL (7.8-10.44); Carbon Dioxide 22 mmol/L (23-31); Chloride 92 mmol/L (98-107); Estimated GFR 88; Glucose 112 mg/dL (83-110); Potassium 3.5 mmol/L (3.5-5.1); Sodium 127 mmol/L (136-145)
[2024-03-26] MEDS: Aspirin Chewable 81 MG TAB PO SCH (08:12)
[2024-03-26] MEDS: Clopidogrel Bisulfate 75 MG TAB PO SCH (08:12)
[2024-03-26] MEDS: Atorvastatin Calcium 40 MG TAB PO SCH (08:12)
[2024-03-26 09:30] LABS: Bacteria/HPF None Seen HPF (None Seen); Bilirubin Negative (Negative); Blood, Urine Negative (Negative); Clarity Clear (Clear); Glucose, Urine (Dipstick) Normal (Negative); Ketone, Urine 10 mg/dL (Negative); Leukocyte Negative Leu/uL (Negative); Nitrite Negative (Negative); Protein, Urine (Dipstick) 100 mg/dL (Neg-Trace); RBC/HPF 0-3 HPF (0-3); Specific Gravity, Urine 1.016 (1.002-1.036); Squamous Epithelial None Seen HPF (0-3); WBC/HPF 0-3 HPF (0-3)
[2024-03-26] MEDS: Tolvaptan 15 MG TAB PO SCH (12:22)
[2024-03-26] MEDS: TOLVAPTAN 30 MG TAB PO SCH (12:24)
[2024-03-26 13:46] LABS: Anion Gap 11 mmol/L (10-20); BUN (Urea Nitrogen) 14 mg/dL (8.4-25.7); Calc. Creatinine Clearance 79 mL/min (70-130); Calcium 9.3 mg/dL (7.8-10.44); Carbon Dioxide 29 mmol/L (23-31); Chloride 91 mmol/L (98-107); Estimated GFR 88; Glucose 141 mg/dL (83-110); Potassium 3.7 mmol/L (3.5-5.1); Sodium 127 mmol/L (136-145)
[2024-03-26 18:38] LABS: Anion Gap 15 mmol/L (10-20); BUN (Urea Nitrogen) 16 mg/dL (8.4-25.7); Calc. Creatinine Clearance 62 mL/min (70-130); Calcium 9.2 mg/dL (7.8-10.44); Carbon Dioxide 23 mmol/L (23-31); Chloride 93 mmol/L (98-107); Estimated GFR 72; Glucose 137 mg/dL (83-110); Sodium 127 mmol/L (136-145)
[2024-03-27 05:53] LABS: Anion Gap 15 mmol/L (10-20); BUN (Urea Nitrogen) 13 mg/dL (8.4-25.7); Calc. Creatinine Clearance 77 mL/min (70-130); Calcium 9.7 mg/dL (7.8-10.44); Carbon Dioxide 26 mmol/L (23-31); Chloride 94 mmol/L (98-107); Estimated GFR 87; Glucose 112 mg/dL (83-110); Potassium 3.3 mmol/L (3.5-5.1); Sodium 132 mmol/L (136-145)
[2024-03-27] MEDS: Potassium Chloride 20 MEQ TAB PO SCH (09:37)
[2024-03-27 14:08] VITALS: BMI 26.6
[2024-03-27] MEDS: HumaLOG 300 UNITS/3 ML VIAL SC PRN (18:28)
[2024-03-28 05:46] LABS: Anion Gap 11 mmol/L (10-20); BUN (Urea Nitrogen) 26 mg/dL (8.4-25.7); Calc. Creatinine Clearance 47 mL/min (70-130); Calcium 9.3 mg/dL (7.8-10.44); Carbon Dioxide 27 mmol/L (23-31); Chloride 97 mmol/L (98-107); Estimated GFR 52; Glucose 115 mg/dL (83-110); Sodium 131 mmol/L (136-145)
[2024-03-28] MEDS: Sodium Chloride 0.9% 1,000 ML IV SCH (11:19)
[2024-03-28] MEDS: Bisacodyl 5 MG TAB PO PRN (21:31)
[2024-03-28] MEDS: diphenhydrAMINE 25 MG CAP PO SCH (21:32)
[2024-03-29 11:40] LABS: Anion Gap 12 mmol/L (10-20); BUN (Urea Nitrogen) 19 mg/dL (8.4-25.7); Calc. Creatinine Clearance 67 mL/min (70-130); Carbon Dioxide 25 mmol/L (23-31); Chloride 102 mmol/L (98-107); Estimated GFR 79; Glucose 159 mg/dL (83-110); Potassium 3.9 mmol/L (3.5-5.1); Sodium 135 mmol/L (136-145)
[2024-03-29] MEDS: Sterile Water 10 ML VIAL FS SCH (22:44)
[2024-03-29] MEDS: Ziprasidone 20 MG VIAL IM SCH (22:45)
[2024-03-30] MEDS: QUEtiapine 25 MG TAB PO SCH ×2 (02:56→20:22)
[2024-03-30 08:36] LABS: Anion Gap 14 mmol/L (10-20); BUN (Urea Nitrogen) 15 mg/dL (8.4-25.7); Calc. Creatinine Clearance 75 mL/min (70-130); Calcium 9.6 mg/dL (7.8-10.44); Carbon Dioxide 26 mmol/L (23-31); Chloride 103 mmol/L (98-107); Estimated GFR 87; Glucose 121 mg/dL (83-110); Potassium 3.8 mmol/L (3.5-5.1); Sodium 139 mmol/L (136-145)
[2024-03-31 05:54] LABS: Anion Gap 13 mmol/L (10-20); BUN (Urea Nitrogen) 17 mg/dL (8.4-25.7); Calc. Creatinine Clearance 65 mL/min (70-130); Calcium 8.8 mg/dL (7.8-10.44); Carbon Dioxide 25 mmol/L (23-31); Chloride 105 mmol/L (98-107); Estimated GFR 77; Glucose 105 mg/dL (83-110); Potassium 4.1 mmol/L (3.5-5.1); Sodium 139 mmol/L (136-145)
[2024-04-01 06:50] LABS: Anion Gap 13 mmol/L (10-20); BUN (Urea Nitrogen) 14 mg/dL (8.4-25.7); Calc. Creatinine Clearance 78 mL/min (70-130); Calcium 9.2 mg/dL (7.8-10.44); Carbon Dioxide 24 mmol/L (23-31); Chloride 102 mmol/L (98-107); Estimated GFR 88; Glucose 108 mg/dL (83-110); Potassium 3.8 mmol/L (3.5-5.1); Sodium 135 mmol/L (136-145)
[2024-04-01 08:44] VITALS: TEMP 98.2
[2024-04-01 12:38] VITALS: BP 165/78
== END 2024-04-01 18:25 | disposition swing bed (61) | DRG 643 ==
LOC: ERS 14:31 → ERHOLD 16:31 → CCU 19:11 → IMCU/EMU 03-24 16:35 → T4-B 03-26 20:58
PROVIDERS: ADMIT Family Medicine; ATTEND Internal Medicine
DX: E22.2 Syndrome of inappropriate secretion of antidiuretic hormone (principal); G93.41 Metabolic encephalopathy; N17.9 Acute kidney failure, unspecified; E78.5 Hyperlipidemia, unspecified; E83.42 Hypomagnesemia; R74.01 Elevation of levels of liver transaminase levels; E11.22 Type 2 diabetes mellitus with diabetic chronic kidney disease; I12.9 Hypertensive chronic kidney disease with stage 1 through stage 4 chronic kidney disease, or unspecified chronic kidney disease; D64.9 Anemia, unspecified; I25.10 Atherosclerotic heart disease of native coronary artery without angina pectoris; N18.2 Chronic kidney disease, stage 2 (mild); G47.33 Obstructive sleep apnea (adult) (pediatric); Z99.89 Dependence on other enabling machines and devices; Z86.73 Personal history of transient ischemic attack (TIA), and cerebral infarction without residual deficits; Z79.899 Other long term (current) drug therapy; Z79.51 Long term (current) use of inhaled steroids; Z79.82 Long term (current) use of aspirin; Z79.02 Long term (current) use of antithrombotics/antiplatelets; Z79.84 Long term (current) use of oral hypoglycemic drugs
CPT/HCPCS: 36415; 36416; 70450; 71045; 80048; 80053; 80074; 81001; 82533; 83690; 83735; 83930; 83935; 84484; 85025; 87086; 93005; 94660; 94664; 96365; J0360; J1650; J1815; J2405; J3475; J3486; J7050; J7131; S0028